=== PATIENT | male | born 2005 | race Caucasian/White ===

== ENCOUNTER 2024-06-09 05:33 | Emergency (ER) | payer OTHER ==
[~2024-06-09] VITALS: Ht 180.3 cm; Wt 66.2 kg
[2024-06-09 05:34] VITALS: PULSE 73; RESP 16; TEMP 98
[2024-06-09] MEDS ORDERED: THERAFLU FLU &1 EAC1 PO (06:15)
[2024-06-09] MEDS ORDERED: CEFDINIR300 MG PO (06:15)
[2024-06-09] MEDS ORDERED: IBU600 MG PO (06:15)
[2024-06-09 06:17] VITALS: BP 115/71; PULSE 66; RESP 16; TEMP 98; O2SAT 98
== END 2024-06-09 06:23 | disposition home or self-care (01) ==
LOC: FSED 05:37
DX: R05.9 Cough, unspecified (principal); J02.0 Streptococcal pharyngitis; Z11.52 Encounter for screening for COVID-19
CPT/HCPCS: 0223U; 83518 ×2; 87400; 99283